=== PATIENT | female | born 1985 | race Asian ===

== ENCOUNTER 2017-01-05 04:01 | Emergency (ER) | payer OTHER ==
[~2017-01-05] VITALS: Ht 144.8 cm; Wt 55.2 kg
[~2017-01-05 04:01] MED LIST: COLACE100 MG PO; FAMOTIDINE20 MG PO; FERROUS SULFAT325 MG PO; IBUPROFEN800 MG PO; OXYCODONE-APAP1 EACH PO; VICODIN 5-3001 EACH PO; ZOFRAN4 MG PO
[2017-01-05 04:29] LABS: MCH 30.3 PG (29.0-34.0); MCHC 34.9 G/DL (30.0-36.0); MCV 86.9 FL (83-99); MEAN PLAT.VOLUME 9.3 uM^3 (9.5-12.4); PLATELET COUNT 185 K/uL (156-360); RBC DIS.WIDTH-SD 41.1 % (39-53); RED BLOOD COUNT 4.26 M/uL (3.80-5.20); WHITE BLOOD COUNT 9.9 K/uL (4.1-10.2)
[2017-01-05 04:41] LABS: CHLORIDE 104 mEq/L (99-109); POTASSIUM 3.6 mEq/L (3.7-5.4); SODIUM 135 mEq/L (136-147)
[2017-01-05 04:44] LABS: GLUCOSE 110 mg/dL (70-99)
[2017-01-05 04:45] LABS: ANION GAP 10 MEQ/L (2-14); TOTAL BILIRUBIN 0.5 mg/dL (0.0-1.0)
[2017-01-05 04:47] LABS: ALKALINE PHOSPHATASE 41 IU/L (3-129); GFR ESTIMATE (CALCULATED) > 59 mL/min/
[2017-01-05 04:48] LABS: UREA NITROGEN (BUN) 6 mg/dL (9-23)
[2017-01-05 04:49] LABS: DIRECT BILIRUBIN 0.2 mg/dL (0.0-0.3)
[2017-01-05 04:51] LABS: LIPASE 12 U/L (1.0-51.0)
[2017-01-05 04:52] LABS: TROP-I INTERPRETATION NEGATIVE; TROPONIN-I < 0.01 ng/mL (0.0-0.30)
[2017-01-05] MEDS ORDERED: PEPCID20 MG PO (06:40)
[2017-01-05] MEDS ORDERED: NORCO 5/3251 TABLET PO (06:40)
[2017-01-05 06:51] VITALS: BP 104/74
== END 2017-01-05 06:52 | disposition home or self-care (01) ==
LOC: EME 04:01
DX: O99.612 Diseases of the digestive system complicating pregnancy, second trimester (principal); K20.9 Esophagitis, unspecified; O26.892 Other specified pregnancy related conditions, second trimester; R07.89 Other chest pain; M54.9 Dorsalgia, unspecified; R11.0 Nausea; Z87.442 Personal history of urinary calculi
CPT/HCPCS: 80048; 80076; 83690; 84484; 85027; 93005; 99281; 99283

== ENCOUNTER 2017-07-03 04:53 | Inpatient (IN) | payer OTHER ==
[~2017-07-03] VITALS: Ht 147.3 cm; Wt 72.2 kg
[~2017-07-03 04:53] MED LIST changes: +ASPIRIN81 M2 PO; +GLYBURIDE2.5 MG PO; +NORCO 5/3251 TABLET PO; +PEPCID20 MG PO; +PRENATAL TABLE1 EAC3 PO
[2017-07-03 05:24] VITALS: BP 102/71
[2017-07-03 05:58] VITALS: BP 138/60
[2017-07-03 06:12] LABS: HEMATOCRIT 39.3 % (36.0-46.0); HEMOGLOBIN 13.3 G/DL (11.9-15.5); MCH 31.1 PG (29.0-34.0); MCHC 33.8 G/DL (30.0-36.0); PLATELET COUNT 247 K/uL (156-360); RBC DIS.WIDTH-CV 13.3 % (11.8-14.6); RBC DIS.WIDTH-SD 44.5 % (39-53); RED BLOOD COUNT 4.27 M/uL (3.80-5.20); WHITE BLOOD COUNT 7.5 K/uL (4.1-10.2)
[2017-07-03 15:48] VITALS: BP 122/65
[2017-07-03 19:46] VITALS: BP 111/59
[2017-07-03 22:51] VITALS: BP 126/57
[2017-07-04 06:46] LABS: BASOPHIL (%) 0.2 % (0-1); EOSINOPHIL (%) 1.3 % (0-5); EOSINOPHIL COUNT 0.1 K/uL (0-0.3); HEMATOCRIT 31.8 % (36.0-46.0); IMMATURE GRANULOCYTE (%) 0.3 % (0.0-0.7); LYMPHOCYTE (%) 18.1 % (15-42); LYMPHOCYTE COUNT 1.7 K/uL (1.0-2.8); MCH 30.7 PG (29.0-34.0); MCHC 33.3 G/DL (30.0-36.0); MCV 92.2 FL (83-99); MONOCYTE (%) 6.4 % (3-12); MONOCYTE COUNT 0.6 K/uL (0-0.8); NEUTROPHIL (%) 73.7 % (45-76); NEUTROPHIL COUNT 6.9 K/uL (1.8-6.4); PLATELET COUNT 196 K/uL (156-360); RBC DIS.WIDTH-CV 13.4 % (11.8-14.6); RBC DIS.WIDTH-SD 45.1 % (39-53); RED BLOOD COUNT 3.45 M/uL (3.80-5.20); WHITE BLOOD COUNT 9.4 K/uL (4.1-10.2)
[2017-07-04 06:52] LABS: HEMOGLOBIN 10.6 G/DL (11.9-15.5)
[2017-07-04 07:50] VITALS: BP 96/48
[2017-07-04 14:53] VITALS: BP 118/75
[2017-07-05 08:30] VITALS: BP 133/75
[2017-07-05 15:30] VITALS: BP 133/62
[2017-07-06 07:31] VITALS: BP 127/77
[2017-07-06 15:14] VITALS: BP 119/72
[2017-07-06 22:58] VITALS: BP 134/82
[2017-07-07 07:30] VITALS: BP 124/73
[2017-07-07] MEDS ORDERED: IBUPROFEN800 MG PO (09:08)
[2017-07-07] MEDS ORDERED: ENDOCET 5-3251 EACH PO (09:08)
[2017-07-07] MEDS ORDERED: DOCUSATE SODIU100 MG PO (09:08)
[2017-07-07] MEDS ORDERED: BREAST PUMP MC (09:10)
== END 2017-07-07 11:11 | disposition home or self-care (01) | DRG 766 ==
LOC: 2WEST 04:53 → 2SOUTH 10:32 → 2WEST 10:52 → 2SOUTH 11:53 → 2WEST 07-07 11:11
PROVIDERS: Obstetrics & Gynecology
PROC: 10D00Z1 Extraction of Products of Conception, Low, Open Approach (ICD-10-PCS; principal; 2017-07-03)
DX: O34.211 Maternal care for low transverse scar from previous cesarean delivery (principal); O24.425 Gestational diabetes mellitus in childbirth, controlled by oral hypoglycemic drugs; K66.0 Peritoneal adhesions (postprocedural) (postinfection); O34.83 Maternal care for other abnormalities of pelvic organs, third trimester; O99.89 Other specified diseases and conditions complicating pregnancy, childbirth and the puerperium; N85.8 Other specified noninflammatory disorders of uterus; N83.201 Unspecified ovarian cyst, right side; Z3A.39 39 weeks gestation of pregnancy; Z37.0 Single live birth; Z87.442 Personal history of urinary calculi; Z82.49 Family history of ischemic heart disease and other diseases of the circulatory system
CPT/HCPCS: 82948; 85025; 85027; 86850; 86900; 86901; 86920; 88307; J0690; J2274; J2590; J3010; J7120